=== PATIENT | male | born 1995 | race Caucasian/White ===

== ENCOUNTER 2021-04-14 08:10 | Emergency (ER) | payer MEDICAID, OTHER ==
[2021-04-14 08:41] VITALS: BP 130/77; PULSE 88
--- NOTE | 2021-04-14 09:19 | EDM.PDOC ---
ED HPI GENERAL MEDICAL PROBLEM - General Chief Complaint: Lower Extremity Injury/Pain Stated Complaint: playing softball left foot pain Time Seen by Provider: 04/14/21 09:10 Source of Information: Reports: Patient, RN Notes Reviewed History Limitations: Reports: No Limitations - History of Present Illness INITIAL COMMENTS - FREE TEXT/NARRATIVE: 25-year-old male playing softball last evening when he caught the ball wrong and apparently twisted his ankle on the left and heard a popping sound. He was able to walk and set up for inning but felt okay and then continue to play the rest of the game. Today however he has tremendous pain and cannot bear weight. No other injuries noted he does note swelling of the ankle. Otherwise in good health no prior history of injury to the ankle - Related Data Allergies Allergy/AdvReac Type Severity Reaction Status Date / Time No Known Allergies Allergy Verified 04/14/21 08:31 Home Meds: Home Meds NK [No Known Home Meds] 06/12/15 [History] Past Medical History - Past Health History Medical/Surgical History: Denies Medical/Surgical History Social & Family History - Tobacco Use Tobacco Use Status *Q: Current Every Day Tobacco User Years of Tobacco use: 7 Packs/Tins Daily: 0.5 Used Tobacco, but Quit: No - Caffeine Use Caffeine Use: Reports: Energy Drinks - Alcohol Use Date of Last Drink: 04/13/21 Time of Last Drink: 21:00 - Recreational Drug Use Recreational Drug Use: No Review of Systems - Review of Systems Review Of Systems: Comprehensive ROS is negative, except as noted in HPI. ED EXAM, GENERAL - Physical Exam Exam: See Below Free Text/Narrative:: 25-year-old male sitting on the gurney. Be in perfect health with no distress and general exam unremarkable aside from the left lower extremity. Knee exam appears to be normal with normal range of motion without evidence of injury on the left or right. Ankle exam shows notable soft tissue swelling with probable effusion over the lateral malleolus but no bony tenderness of the posterior aspect of the distal fibula. Foot exam is normal without evidence of swelling or tenderness. He does have pain on inversion which is limited because of discomfort. Calcaneus is nontender on compression Course - Vital Signs Text/Narrative:: Ankle x-ray on my review shows soft tissue swelling over the lateral malleolar area. There is no bony abnormalities on my review. Will discuss with orthopedics and refer Ortho recommends boot follow-up in Ortho clinic tomorrow plus crutches Last Recorded V/S: Last Vital Signs Temp 36.5 C 04/14/21 08:41 Pulse 88 04/14/21 08:41 Resp 14 04/14/21 08:41 BP 130/77 04/14/21 08:41 Pulse Ox 98 04/14/21 08:41 - Orders/Labs/Meds Orders: Active Orders 24 hr Category Date Time Status Ankle Min 3V Lt [CR] Stat Exams 04/14/21 09:21 Taken Departure - Departure Time of Disposition: 10:40 Disposition: Home, Self-Care 01 Clinical Impression: Left ankle injury - Discharge Information Forms: ED Department Discharge Sepsis Event Note (ED) - Evaluation Sepsis Screening Result: No Definite Risk - Focused Exam Vital Signs: Vital Signs Temp Pulse Resp BP Pulse Ox 04/14/21 08:41 36.5 C 88 14 130/77 98 04/14/21 08:40 36.5 C 88 14 130/77 98 - My Orders Last 24 Hours: My Active Orders 04/14/21 09:21 Ankle Min 3V Lt [CR] Stat - Assessment/Plan Last 24 Hours: My Active Orders 04/14/21 09:21 Ankle Min 3V Lt [CR] Stat
--- NOTE | 2021-04-15 09:27 | CR ---
Ankle Min 3V Lt CLINICAL HISTORY: Injury FINDINGS: The soft tissues are swollen, particularly over the lateral malleolus.. No acute fracture or dislocation is noted. Ankle mortise is intact. There is pes planus. Impression: Lateral soft tissue swelling No fracture or dislocation Pes planus
== END 2021-04-14 10:54 | disposition home or self-care (01) ==
LOC: JP.ED 08:10
DX: S99.912A Unspecified injury of left ankle, initial encounter (principal); Z72.0 Tobacco use; X50.1XXA Overexertion from prolonged static or awkward postures, initial encounter
CPT/HCPCS: 73610-26-LT; 73610-LT; 99283

== ENCOUNTER 2022-10-06 11:33 | Emergency (ER) | payer MEDICAID ==
[2022-10-06 11:49] VITALS: BP 151/91; PULSE 89
[2022-10-06] MEDS ORDERED: Ketorolac 30 MG/ML SDV IM ONE (12:19)
== END 2022-10-06 15:33 | disposition home or self-care (01) ==
LOC: JP.ED 11:33
DX: M25.572 Pain in left ankle and joints of left foot (principal); X50.1XXA Overexertion from prolonged static or awkward postures, initial encounter; Y99.0 Civilian activity done for income or pay
CPT/HCPCS: 73610-26-LT; 73610-LT; 99282; 99283